=== PATIENT | female | born 1955 | race Caucasian/White ===

== ENCOUNTER 2023-04-07 18:26 | Inpatient (IN) | payer MEDICARE, SELFPAY ==
[2023-04-07] VITALS (7 sets, daily range): BP systolic 100–144; BP diastolic 60–87; BMI 26.2; BMI 25.5
[2023-04-07] MEDS: DECADRON 8 MG IV (16:24)
[2023-04-07] MEDS: VENTOLIN NEBULES 7.5 MG INH (16:27)
[2023-04-07] MEDS: DUONEB 3 ML INH ×2 (16:28→21:36)
[2023-04-07 16:38] LABS: % Basophils 0.3 % (0-2); % Eosinophils 4.8 % (0-6); % Immature Granulocytes 0.6 % (0-0.5); % Lymphocytes 24.8 % (20.5-51.1); % Neutrophils 62.5 % (42.2-75.2); Absolute Eosinophils 0.5 10^3/uL (0-0.7); Absolute Immature Granulocytes 0.1 10^3/uL (0-0.05); Absolute Lymphocytes 2.4 10^3/uL (1.2-3.4); Absolute Monocytes 0.7 10^3/uL (0.1-0.6); Hemoglobin 13.3 g/dL (12.0-16.0); Mean Corp Hgb Conc. 34.1 g/dL (33.0-37.0); Mean Corpuscular Hgb 29.9 pg (27.0-31.0); Mean Corpuscular Volume 87.6 fL (81.0-99.0); Mean Platelet Volume 9.3 fL (7.4-10.4); Nucleated Red Blood Cells % 0 %; Platelet Count 303 10^3/uL (130-400); Red Blood Cell Count 4.45 10^6/uL (4.20-5.40); White Blood Cell Count 9.6 10^3/uL (4.8-10.8)
[2023-04-07 16:52] LABS: D-Dimer < 0.27 ug/mlFEU (0.00-0.50)
[2023-04-07 16:55] LABS: Blood Urea Nitrogen 22 mg/dl (7-17); Calcium 10.6 mg/dl (8.4-10.2); Carbon Dioxide 28 mmol/L (22-30); Chloride 100 mmol/L (98-107); Estimated Creatinine Clearance 51 ml/min; Glucose 95 mg/dl (70-99); Potassium 4.4 mmol/L (3.5-5.1); Sodium 139 mmol/L (135-145); eGFR 54.73
[2023-04-07 16:56] LABS: COVID-19 Antigen Negative (Negative)
[2023-04-07 17:03] LABS: Troponin I < 0.012 ng/ml
--- NOTE | 2023-04-07 17:20 | ED.GENMED ---
History of Present Illness
General
Chief Complaint: Breathing Problem
Source: patient
Exam Limitations: none
Time Seen by Provider: 04/07/23 15:55
Travel History
Have you had any contact with someone who has COVID-19?: No
Do you have any symptoms of coronavirus? Fever > 100 degrees, chills, cough, shortness of breath, sore throat, loss of taste or smell, muscle aches, or headache?: No
History of Present Illness
History of Present Illness:
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 History of some mild shortness of breath but never to this degree. No pleuritic chest pain. No fever. No other infectious symptoms
Past History
Past History
ED Past Medical History: Hypercholesterolemia
ED Past Surgical History: Appendectomy and Cholecystectomy
Review of Systems
Review of Systems
All Other Systems: Not applicable
Constitutional: Denies fever
Cardiac: Reports no symptoms
ABD/GI: Reports no symptoms
Phy Exam
Physical Exam
Physical Exam:
GENERAL: Alert and oriented. Mildly tachypneic at rest. Mildly breathless with speaking
EYE: Orbits normal.
NECK: Supple, no significant adenopathy.
ENT: Pharynx without erythema
CARDIAC: Regular rate and rhythm without any obvious murmurs.
LUNGS: Mild tachypnea. Mildly breathless with speaking. Decreased breath sounds diffusely with end expiratory wheezing diffusely
ABDOMEN: Soft, without focal tenderness or distention
NEUROLOGICAL: Alert and oriented , grossly non-focal
SKIN: Warm and dry, no rash or lesion, no discoloration, skin intact.
MUSCULOSKELETAL: No edema,no deformity.Good color
PSYCH: Normal and appropriate interaction.
Scores
Heart Failure Risk
Heart Failure Risk Score: Not Applicable
Course
Orders/Labs/Results
Orders:
Orders
04/07/23 Breakfast
Cholesterol Lowering
At Your Request: Full Participation
Cholesterol Lowering: Sodium, 2 Gram
04/07/23 15:59
Electrocardiogram (*1) Stat
Reason for Study: Other
Other Reason for Exam: pneumonia
Cardiac Monitoring- Treatment ONCE
EKG- Treatment ONCE
IV Insert/Care/Rem.- Treatment PRN
Albuterol Sulfate [Ventolin Nebules] 7.5 mg INH R NOW STA
Dexamethasone Sod Phosphate [Decadron] 8 mg IV NOW STA
Ipratropium/Albuterol Sulfate [Duoneb] 3 ml INH R NOW STA
CXR Port [CR Chest Portable - 1 View] Urgent
Comment:
Reason For Exam: sob
Reason Study Needs to be Portable: Unable to Transport
Pulse Ox/cont/shift [RESP] Stat
Quantity: 1
04/07/23 16:20
Basic Metabolic Panel Urgent
COVID-19 Antigen Urgent
Source: Nasal Swab
Complete Blood Count/With Diff Urgent
D-Dimer Urgent
NT-proBNP Urgent
Troponin I Urgent
04/07/23 17:39
Admit/Transfer Patient As Directed
Co-Sign Provider:
Level of Care: Inpatient admission
Assign to:: Telemetry
Physician / Group: jazlyn carpio
Diagnosis: asthma exacerbation
Reason for Telemetry: Arrhythmia
Date to Stop Telemetry: 04/10/23
Time to Stop Telemetry: 11:00
Reason for Hospitalization: asthma exacerbation
Expected length of stay greater than two midnights?: Yes
ELOS- Estimated Length of Stay in days: 3
I certify the patient meets the requirements for IP care: Yes
04/07/23 17:40
Code Status As Directed
Resuscitation Status: Full Code
04/07/23 17:[address] Non Medication Order As Directed
Physician Order: notify MD when med rec done
Above order entered?: Yes
04/07/23 17:43
Peak Flow Rate [RESP] Routine
Quantity: 1
04/07/23 17:44
PULMONARY CONSULT Routine
Consulting Provider: Khris Newell
Was physician already notified: Yes
04/07/23 18:00
0.9% Sodium Chloride 1000 ml [Nss] 1,000 ml IV 80 mls/hr
04/07/23 19:54
Budesonide [Pulmicort] 0.5 mg INH R BID
Enoxaparin Sodium [Lovenox] 40 mg SC QPM
Ipratropium/Albuterol Sulfate [Duoneb] 3 ml INH R Q4HPRN PRN
04/07/23 19:54
Activity As Directed
Activity Level: As Tolerated
Intake/ Output As Directed
Frequency: Per unit guidelines
Vital Signs As Directed
Frequency: Per unit guidelines
Weight As Directed
Frequency: Daily
Pulse Ox/spot Check [RESP] Routine
Quantity: 1
DX Deep Vein Thrombosis Video Routine
04/07/23 20:00
Ipratropium/Albuterol Sulfate [Duoneb] 3 ml INH R QID
04/08/23 00:00
Dexamethasone Sod Phosphate [Decadron] 4 mg IV Q8H
04/08/23 07:04
Basic Metabolic Panel IN AM
Complete Blood Count/With Diff IN AM
04/10/23 11:00
DC Protocol for Telemetry ONCE
Abnormal Lab Results
04/07/23
16:20
RDW 15.0 H %
(11.5-14.5)
Abs Immat Gran (auto) 0.1 H 10^3/uL
(0-0.05)
Absolute Monos (auto) 0.7 H 10^3/uL
(0.1-0.6)
Immature Gran % 0.6 H %
(0-0.5)
BUN 22 H mg/dl
(7-17)
Creatinine 1.1 H mg/dL
(0.6-1.0)
Calcium 10.6 H mg/dl
(8.4-10.2)
04/07/23 16:20
04/07/23 16:20
Vital Signs
Initial and Last Documented VS:
Initial Vital Signs
Temp Pulse Resp BP Pulse Ox
97.7 F 106 22 144/87 96
04/07/23 14:44 04/07/23 14:44 04/07/23 14:44 04/07/23 14:44 04/07/23 14:44
Last Documented Vital Signs
Temp Pulse Resp BP Pulse Ox
98.3 F 107 18 139/92 97
04/08/23 11:00 04/08/23 11:00 04/08/23 11:00 04/08/23 11:00 04/08/23 11:00
*Radiology
Radiology exam reviewed: preliminary read by ED provider (Negative) and radiology read reviewed (Negative)
*EKG
Interpreted by ED Provider?: Yes
Interpretation: abnormal
Comparison EKG: no comparison EKG present
Heart Rate: 104
Rate: tachycardiac
Rhythm: sinus
[place]: normal axis
Interval: normal interval
QRS Pattern: normal QRS
Ischemia: no ischemia
*Turbinated Bone Grinder Interpretation
Rate: normal
Interpretation: normal
Heart Rate: 98
Rhythm: sinus
*Critical Care Note
Total Time (30-74mins, 75-104mins- exclusive of procedures): Not Applicable
Update Note
Update Note:
Patient improved but still diffuse expiratory wheezing and poor airflow. Warrants inpatient management
ED Attending Note
-
Portions of this chart may have been created with voice recognition software.� Occasional wrong word or��sound alike� substitutions may have occurred due to the inherent limitations of voice recognition software.
Discharge Plan
Departure
Patient Disposition: Admit
Date of Disposition: 04/07/23
Time of Disposition: 17:21
Presentation/result/management discussed w/ accepting MD/DO: Hospitalist
Discharge Problem:
Respiratory distress/COPD exacerbation
Interventions
Interventions:
*Risk Screen - Suicide Last Done: 04/07/23 14:44
*General Assessment Last Done: 04/07/23 14:44
*Neglect/Abuse Screening Last Done: 04/07/23 14:44
ED- Fall Risk Assessment Last Done: 04/07/23 17:00
*ED COVID-19 Vaccine History Last Done: 04/07/23 17:00
*Nursing Disposition Last Done: 04/07/23 19:51
ED- Cardiac Assessment Last Done: 04/07/23 17:00
ED- Pulmonary Assessment Last Done: 04/07/23 17:00
Discharge Date and Time
Discharge Date/Time: 04/07/23 19:52
--- NOTE | 2023-04-07 17:42 | HPS.HSE ---
Family Physician
-
Family Physician: Vinod Wilson Files
Chief Complaint
-
Shortness of breath
History of Present Illness
67-year-old female past medical history of hypertension, hyperlipidemia, asthma came to the hospital with shortness of breath. Per patient she was cleaning alexi room yesterday which triggered her symptoms. Denies any cough. Denies any
fever/chills. Denies any sick contacts. Denies any chest pain. Denies any abdominal pain, nausea, vomiting, diarrhea, constipation.
Medical History
Past Medical History
Past Medical History: Reports Asthma, HTN and Hypercholesterolemia
Past Surgical History: Reports Appendectomy and Cholecystectomy
Social History
Tobacco: Former Smoker
Drug: None
Family History
Family History: Not pertinent
Allergies / Home Medications
Allergies reflects when Allergies were last updated in [facility].
Home Medications with original date entered in [facility]
Allergy/Medication List:
Allergies
Allergy/AdvReac Type Severity Reaction Status Date / Time
peanut Allergy Severe Anaphylaxis Verified 04/07/23 14:44
Medications on admission are unable to be verified or confirmed at this time.
Lisinopril 20mg Daily
Albuterol 2puff Q6hPRN for sob or wheezing
Rosuvastatin
Review of Systems
-
History Source: Patient
A 12 point ROS was completed and negative except as noted: Yes
Respiratory: Reports Trouble Breathing
Physical Exam
Vital Signs
Vital Signs
Temp Pulse Resp BP Pulse Ox
97.7 F 106 15 100/66 97
04/07/23 14:44 04/07/23 17:15 04/07/23 17:15 04/07/23 17:00 04/07/23 17:15
Physical Exam
General: No Apparent Distress and Comfortable
HEENT: Anicteric and Moist mucous membranes
Respiratory: Clear, Wheezes and Non Labored Respirations
Cardiac: S1/S2, Regular Rhythm and Tachycardia
Breast: Deferred by me
GI: Soft, Non Tender, Non Distended and Normal Bowel Sounds
Rectal: Deferred by Provider
Genito-urinary: No Garcia
Musculoskeletal: No Edema
Neuro: Awake, Alert, Oriented and AO x 3
Psych: Calm and Intact Judgment/Insight
Laboratory Results
-
04/07/23 16:20
04/07/23 16:20
Laboratory Results
Troponin I < 0.012 ng/ml 04/07/23 16:20
Data Reviewed
-
Lab Data: Labs Reviewed by me and Discussed with Patient
Impression/Plan
-
Shortness of breath and wheezing suspect secondary to asthma exacerbation
Acute hypoxic respiratory insufficiency secondary above, currently on 2 L, wean oxygen as tolerated
Patient is not on any maintenance inhaler at home, will likely need to be discharged on ICS
Status post Decadron in the ED, continue Decadron, nebs. Pulmicort
Peak flow
Also has history of smoking so could have some COPD component. PFTs outpatient
Pulmonary evaluation
History of hypertension
Restart lisinopril when dose is confirmed
Suspect renal insufficiency
Monitor
Hypercalcemia
Fluids
monitor
Hyperlipidemia
DVTppx
lovenox
Full code
[2023-04-07] MEDS: NSS 1000 IV (18:39)
--- NOTE | 2023-04-07 20:40 | PTCARENOTE ---
Received pt from ED via stretcher. Pt ambulated to bed without assist. AAOx3, VSS, ST on tele monitor, no complaints of pain at this time. Oriented to floor, call frye within reach.
[2023-04-07] MEDS: LOVENOX 40 MG SC (20:45)
[2023-04-07] MEDS: OSCAL CAL 500 1000 MG PO (21:33)
[2023-04-07] MEDS: VITAMIN D3 (cholecalciferol) 25 MCG PO (21:33)
[2023-04-07] MEDS: CRESTOR 20 MG PO (21:33)
[2023-04-07] MEDS: PULMICORT 0.5 MG INH (21:36)
[2023-04-07] MEDS: PULMICORT INH (22:10)
[2023-04-08] MEDS: DECADRON 4 MG IV ×2 (00:28→08:48)
[2023-04-08 03:12] VITALS: BP 111/68
[2023-04-08 07:00] VITALS: BP 127/77
[2023-04-08 07:23] LABS: % Basophils 0.1 % (0-2); % Eosinophils 0.2 % (0-6); % Immature Granulocytes 0.5 % (0-0.5); % Lymphocytes 14.6 % (20.5-51.1); % Neutrophils 81.6 % (42.2-75.2); Absolute Immature Granulocytes 0.1 10^3/uL (0-0.05); Absolute Lymphocytes 1.6 10^3/uL (1.2-3.4); Absolute Monocytes 0.3 10^3/uL (0.1-0.6); Absolute Neutrophils 8.7 10^3/uL (1.4-6.5); Hematocrit 35.9 % (37.0-47.0); Mean Corp Hgb Conc. 33.4 g/dL (33.0-37.0); Mean Corpuscular Hgb 30.4 pg (27.0-31.0); Mean Corpuscular Volume 90.9 fL (81.0-99.0); Mean Platelet Volume 9.2 fL (7.4-10.4); Nucleated Red Blood Cells % 0 %; Platelet Count 261 10^3/uL (130-400); Red Blood Cell Count 3.95 10^6/uL (4.20-5.40); Red Cell Dist. Width 14.9 % (11.5-14.5); White Blood Cell Count 10.7 10^3/uL (4.8-10.8)
[2023-04-08] MEDS: PULMICORT 0.5 MG INH (07:24)
[2023-04-08] MEDS: DUONEB 3 ML INH (07:24)
[2023-04-08] MEDS: OSCAL CAL 500 1000 MG PO (08:48)
[2023-04-08] MEDS: VITAMIN D3 (cholecalciferol) 25 MCG PO (08:48)
[2023-04-08] MEDS: ZESTRIL 20 MG PO (08:49)
[2023-04-08 08:54] LABS: Blood Urea Nitrogen 25 mg/dl (7-17); Calcium 10.2 mg/dl (8.4-10.2); Carbon Dioxide 23 mmol/L (22-30); Chloride 101 mmol/L (98-107); Estimated Creatinine Clearance 56 ml/min; Glucose 155 mg/dl (70-99); Potassium 4.5 mmol/L (3.5-5.1); Sodium 137 mmol/L (135-145); eGFR > 60.00
--- NOTE | 2023-04-08 10:31 | CM ---
Cm met with pt bedside
Pt resides with her SO in a [place] with 3[place]
Pt is independent with her ADLs
Denies use of DMEs
PCP- Steve Gutierrez
Rx- [facility]
Discharge order noted
Pt weaned back to RA and notes independence throughout room
No dc needs noted
Discharge Disposition- home, no needs- SO transport
[2023-04-08 11:00] VITALS: BP 139/92
[2023-04-08] MEDS: DUONEB INH (11:33)
--- NOTE | 2023-04-08 11:33 | W.DCSUMMARY ---
Discharge Summary
Discharge Data
Date of Admission: 04/07/23
Date of Discharge: 04/08/23
Total time spent discharging patient (in min): 34
-
Pending Results: No
Hospital Course
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
with a apparent asthmatic flare with wheezing congestion no significant hypoxia was noted she did admit in her history that she lives with pets that and she is allergic to pet dander but has been taking course of antihistamines in the past but
stopped several months ago she has a rescue inhaler in the form of albuterol that she did not use on this occasion she was treated in the ED with nebulizer therapy and admitted to observation status she was given a course of IV steroids which
significantly improved her symptoms at the time of my evaluation this morning on seeing her she is not exhibiting any bronchospasm not requiring oxygen there is no respiratory distress we had a discussion over preventative measures to include return
to her antihistamine usage and I suggested something like Zyrtec or Claritin going forward I did suggest to her that she may benefit from a inhaled corticosteroid and I will give her a prescription for Symbicort as maintenance she will go home on a
3-day course of prednisone 40 mg each day and then stopped she can continue usage of albuterol as a rescue inhaler. I did advise her to seek attention with her PCP and/or have allergy testing to assess the full extent of her allergic based asthma
although of note entered CBC differential eosinophils on presentation were 4.8% on date of admission and down to 0.2% at time of discharge.
Discharge Plan
-
Patient Disposition: Home (Routine Discharge)
Discharge Diagnosis/Procedures: Acute asthmatic flare
Underlying COPD
Diet: No restrictions
Activity: No restrictions
Driving Restrictions: As prior to admission
Referrals:
Vinod Gutierrez DO [Family Provider] -
Prescriptions:
New
prednisone 20 mg tablet
40 mg PO DAILY Qty: 6 0RF
budesonide-formoterol [Symbicort] 160-4.5 mcg/actuation HFA aerosol inhaler
2 puff inhalation BID Qty: 10.2 0RF
Continued
albuterol sulfate 90 mcg/actuation Hfa Aerosol Inhaler
1 puff INHALATION R Q4HPRN PRN (Reason: sob)
omega-3 acid ethyl esters 1 gram Capsule
2 cap PO BID
Calcium + D3
1 tab PO BID
Patient Comments:
04/07/2023, 1200 mg Calcium, 25 mcg D3 per tablet.
lisinopril 20 mg Tablet
20 mg PO DAILY Qty: 0 0RF
rosuvastatin 20 mg Tablet
20 mg PO HS Qty: 0 0RF
Discharge Orders:
Discharge Patient (As Directed); Ordered 04/08/23
Ordered By: Librado Elias
--- NOTE | 2023-04-08 11:38 | W.DS.TRANS ---
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
-
Discharge Instructions:
Discharge Diagnosis/Procedures Acute asthmatic flare
Underlying COPD
Diet No restrictions
Activity No restrictions
Driving Restrictions As prior to admission
Instructions:
Stand-Alone Forms:
Changes to Home Medications: No
Discharge Medications:
DC Medications w/original date entered in [facility]
Calcium + D3 1 tab PO BID 04/07/23
albuterol sulfate 90 mcg/actuation aerosol inhaler 1 puff inhalation R Q4HPRN PRN sob 04/07/23
omega-3 acid ethyl esters 1 gram capsule 2 cap PO BID 04/07/23
budesonide-formoterol HFA 160 mcg-4.5 mcg/actuation aerosol inhaler (Symbicort) 2 puff inhalation BID Anti-inflammatory #10.2 grams 04/08/23
lisinopril 20 mg tablet 20 mg PO DAILY Blood pressure #0 tabs 04/08/23
prednisone 20 mg tablet 40 mg PO DAILY Anti-inflammatory #6 tabs 04/08/23
rosuvastatin 20 mg tablet 20 mg PO HS Supplement #0 tabs 04/08/23
Home Medication Changes
prednisone 20 mg tablet 40 mg PO DAILY Anti-inflammatory #6 tabs 04/08/23
budesonide-formoterol HFA 160 mcg-4.5 mcg/actuation aerosol inhaler (Symbicort) 2 puff inhalation BID Anti-inflammatory #10.2 grams 04/08/23
Pending Results: No
Total time spent discharging patient (in min): 34
== END 2023-04-08 13:14 | disposition home or self-care (01) | DRG 192 ==
LOC: 4 EAST ACU 18:26
PROVIDERS: ADMITTING PHYSICIAN Internal Medicine; ATTENDING PHYSICIAN Internal Medicine; EMERGENCY PHYSICIAN Emergency Medicine; FAMILY PHYSICIAN Family Medicine
DX: J44.1 Chronic obstructive pulmonary disease with (acute) exacerbation (principal); I10 Essential (primary) hypertension; E78.00 Pure hypercholesterolemia, unspecified; Z79.51 Long term (current) use of inhaled steroids
CPT/HCPCS: 71045; 80048; 83880; 84484; 85025; 85379; 87811; 93005; 94640; 96374; 99285

== ENCOUNTER 2023-11-15 21:33 | Inpatient (IN) | payer MEDICARE, OTHER, SELFPAY ==
[2023-11-15 15:34] VITALS: BP 159/87
[2023-11-15 16:13] LABS: ALT (SGPT) 37 U/L (0-35); AST (SGOT) 21 U/L (14-36); Albumin 4.2 g/dl (3.5-5.0); Alkaline Phosphatase 80 U/L (38-126); Blood Urea Nitrogen 35 mg/dl (7-17); Calcium 10.2 mg/dl (8.4-10.2); Carbon Dioxide 26 mmol/L (22-30); Chloride 99 mmol/L (98-107); Glucose 94 mg/dl (70-99); Potassium 3.9 mmol/L (3.5-5.1); Sodium 142 mmol/L (135-145); Total Bilirubin 0.5 mg/dl (0.2-1.3); Total Protein 7.1 g/dl (6.3-8.2); eGFR 40.73
--- NOTE | 2023-11-15 16:23 | ED.GENMED ---
History of Present Illness
General
Chief Complaint: Breathing Problem
Time Seen by Provider: 11/15/23 16:12
History of Present Illness
History of Present Illness:
Patient presents to the emergency department with shortness of breath. Notes that she got a head cold 2 weeks ago on a cruise. Since then she has had worsening cough and dyspnea. She was started on a Medrol dose pack, Levaquin and inhaler by her
primary doctor 4 days ago. Despite this she notes worsening symptoms. Endorses cough productive of mucus. Denies fevers or chills. Endorses dyspnea. Denies chest pain or leg swelling.
Past History
Past History
ED Past Medical History: Hypercholesterolemia
ED Past Surgical History: Appendectomy and Cholecystectomy
Phy Exam
Physical Exam
Physical Exam:
GENERAL APPEARANCE: NAD, well developed/ well nourished
EYES lids/conjunctiva normal
EARS/NOSE/THROAT Mucous membranes moist, uvula midline without oral pharyngeal erythema, exudate or swelling
HEAD/NECK normocephalic atraumatic, neck is supple.
RESPIRATORY mild increase in respiratory effort, wheezing in anterior lung spaulding. Diminished air movement throughout.
CARDIAC Regular rate and rhythm, no edema.
ABDOMINAL Soft, ND/NT. No pulsatile masses on exam, rebound tenderness, Villalobos sign or pain over Mcburney's point.
MUSCLES/EXTREMITIES No abnormal range of motion, no swelling.
SKIN Warm, pink and dry. No rashes
NEUROLOGICAL Speech is clear and appropriate. Normal level of consciousness. 5/5 strength in all extremities.
PSYCH Normal mood and affect. Judgement/competence is appropriate
Scores
Heart Failure Risk
Heart Failure Risk Score: Not Applicable
Course
Orders/Labs/Results
Orders:
Orders
11/15/23 15:40
Complete Blood Count/With Diff Urgent
Comprehensive Metabolic Panel Urgent
11/15/23 16:19
0.9% Sodium Chloride 500 ml [Nss] 500 ml IV BOLUS
Ipratropium/Albuterol Sulfate [Duoneb] 3 ml INH R NOW STA
MethylPREDNISolone PF [Solu-Medrol Pf] 125 mg IV NOW STA
Pulse Ox/cont/shift [RESP] Stat
Quantity: 1
11/15/23 16:21
CR Chest - 2 Views Urgent
Comment:
Reason For Exam: sob
11/15/23 16:39
D-Dimer Urgent
Troponin I Urgent
11/15/23 17:14
CT Chest Pe Study Urgent
Comment:
Reason For Exam: sob, +ddimer
11/15/23 17:53
COVID-19 Antigen Urgent
Source: Nasal Swab
Influenza A+B Rapid Molecular Urgent
CHELSY Source: Nasal Swab
Specimen Description:
11/15/23 19:00
Azithromycin [Zithromax] 500 mg PO NOW STA
CefTRIAXone [Rocephin] 1,000 mg IV NOW STA
Abnormal Lab Results
11/15/23 11/15/23
15:40 16:39
WBC 19.0 H 10^3/uL
(4.8-10.8)
RDW 16.5 H %
(11.5-14.5)
Abs Immat Gran (auto) 2.0 H 10^3/uL
(0-0.05)
Absolute Neuts (auto) 11.8 H 10^3/uL
(1.4-6.5)
Absolute Monos (auto) 2.1 H 10^3/uL
(0.1-0.6)
Immature Gran % 10.4 H %
(0-0.5)
Lymphocytes % 15.9 L %
(20.5-51.1)
Monocytes % 10.8 H %
(1.7-9.3)
D-Dimer 1.33 H ug/mlFEU
(0.00-0.50)
BUN 35 H mg/dl
(7-17)
Creatinine 1.4 H mg/dL
(0.6-1.0)
ALT 37 H U/L
(0-35)
11/15/23 15:40
11/15/23 15:40
Vital Signs
Initial and Last Documented VS:
Initial Vital Signs
Temp Pulse Resp BP Pulse Ox
98.3 F 123 20 159/87 92
11/15/23 15:34 11/15/23 15:34 11/15/23 15:34 11/15/23 15:34 11/15/23 15:34
Last Documented Vital Signs
Temp Pulse Resp BP Pulse Ox
98.3 F 95 15 96/81 89
11/15/23 15:34 11/15/23 18:30 11/15/23 18:30 11/15/23 18:00 11/15/23 18:15
*Critical Care Note
Total Time (30-74mins, 75-104mins- exclusive of procedures): Not Applicable
ED Attending Note
ED Attending Note
ED Attending Note:
hx of chronic bronchitis/asthma, ex smoker
here with worsening cough over past 2 weeks despite medrol dose pack, levaquin as outpatient
hypoxic here requiring 2L NC
Afebrile, WBC 19
given lack of fever, hypotension/shock, in the setting of blood culture shortage, no cultures drawn
CTA negative for PE, she has LLL pneumonia
treated with CTX and azithro
also got a dose of solumedrol and duoneb on arrival for wheezing
-
Portions of this chart may have been created with voice recognition software.� Occasional wrong word or��sound alike� substitutions may have occurred due to the inherent limitations of voice recognition software.
Discharge Plan
Departure
Patient Disposition: Admit
Date of Disposition: 11/15/23
Time of Disposition: 19:32
Admit to: Telemetry
Presentation/result/management discussed w/ accepting MD/DO: Hospitalist
Discharge Problem:
Community acquired pneumonia
Prescriptions:
No Action
albuterol sulfate 90 mcg/actuation Hfa Aerosol Inhaler
1 puff INHALATION R Q4HPRN PRN (Reason: sob)
omega-3 acid ethyl esters 1 gram Capsule
2 cap PO BID
calcium carbonate-vitamin D3 [Calcium 600 + D(3)] 600 mg-10 mcg (400 unit) Tablet
1 tab PO BID Qty: 0
Patient Comments:
04/07/2023, 1200 mg Calcium, 25 mcg D3 per tablet.
methylprednisolone 4 mg tablet
4 mg PO PER PKG DIR
zinc sulfate 50 mg zinc (220 mg) Tablet
50 mg PO DAILY
ascorbic acid (vitamin C) [Vitamin C] 500 mg Tablet
500 mg PO DAILY
losartan 25 mg tablet
25 mg PO DAILY
levofloxacin 750 mg tablet
750 mg PO HS
Saline Nasal Mist 0.65 % Aerosol,[place]
2 spray INTRANASAL BIDPRN PRN (Reason: congestion)
guaifenesin [Mucinex] 1,200 mg Tablet Extended Release 12hr
1,200 mg PO BIDPRN PRN (Reason: congestion)
Trelegy Ellipta 100-62.5-25 mcg Blister With Device
1 inh INHALATION R HS
rosuvastatin 20 mg tablet
20 mg PO HS
Referrals:
Vinod Gutierrez DO [Family Provider] -
Interventions
Interventions:
*Risk Screen - Suicide Last Done: 11/15/23 17:43
*General Assessment Last Done: 11/15/23 17:43
*Neglect/Abuse Screening Last Done: 11/15/23 17:43
*ED COVID-19 Vaccine History Last Done: 11/15/23 17:43
ED- Cardiac Assessment Last Done: 11/15/23 16:41
ED- Pulmonary Assessment Last Done: 11/15/23 16:41
Discharge Date and Time
Print Language: [id number]
[2023-11-15] MEDS: DUONEB 3 ML INH (16:41)
[2023-11-15] MEDS: SOLU-MEDROL PF 125 MG IV (16:41)
[2023-11-15] MEDS: NSS 500 IV (16:41)
[2023-11-15 16:47] LABS: Hematocrit 37.2 % (37.0-47.0); Hemoglobin 12.3 g/dL (12.0-16.0); Mean Corp Hgb Conc. 33.1 g/dL (33.0-37.0); Mean Corpuscular Volume 87.7 fL (81.0-99.0); Mean Platelet Volume 8.5 fL (7.4-10.4); Platelet Count 397 10^3/uL (130-400); Red Blood Cell Count 4.24 10^6/uL (4.20-5.40); Red Cell Dist. Width 16.5 % (11.5-14.5)
[2023-11-15 16:58] LABS: D-Dimer 1.33 ug/mlFEU (0.00-0.50)
[2023-11-15 17:16] LABS: Troponin I < 0.012 ng/ml
[2023-11-15 17:51] VITALS: BP 99/86
[2023-11-15 18:00] VITALS: BP 96/81
[2023-11-15 19:01] LABS: COVID-19 Antigen Negative (Negative)
[2023-11-15] MEDS: ZITHROMAX 500 MG PO (19:24)
[2023-11-15 19:25] LABS: % Basophils 0.1 % (0-2); % Eosinophils 0.5 % (0-6); % Immature Granulocytes 10.4 % (0-0.5); % Lymphocytes 15.9 % (20.5-51.1); % Monocytes 10.8 % (1.7-9.3); % Neutrophils 62.3 % (42.2-75.2); Absolute Eosinophils 0.1 10^3/uL (0-0.7); Absolute Monocytes 2.1 10^3/uL (0.1-0.6); Absolute Neutrophils 11.8 10^3/uL (1.4-6.5); Nucleated Red Blood Cells % 0.2 %
[2023-11-15] MEDS: ROCEPHIN 1000 MG IV (19:25)
--- NOTE | 2023-11-15 20:51 | HPS.HSE ---
Addendum entered and electronically signed by July Kelley, 11/15/23 22:44:
The patient is seen and examined. I have reviewed the patient with Juany, and agree with her history and physical, assessment and plan of care, as per below.
She is not on home oxygen, and is currently requiring 3 L O2 per NC in the ED.
HR 103, RR 22
WBC 19.0
CT chest
Findings suggesting probable moderate left lower lobe pneumonia. Repeat exam in 2 weeks following treatment is recommended to exclude underlying masses.
no PE
CAP, failed oral OP medications, systemic inflammatory response, and new O2 requirements
-continue IV antibiotics, nebs, steroids (Prednisone 20 mg daily -was on OP medrol dose back at 12 mg x 1 day, 8 mg x 1 day, 4 mg then stop), O2 per RT weaning protocol
MARTIN
IVF, hold Losartan, repeat labs in am
Original Note:
Family Physician
-
Family Physician: Vinod Wilson Files
Chief Complaint
-
Cough, wheezing, chills
History of Present Illness
68-year-old female who reports going on a cruise from October 27 to the where she developed a slight sore throat with mild chills and fatigue. Her was at bedside also had the same symptoms. They did not test for COVID or flu as a
state people do not do that anymore'. She reports she then developed a persistent cough productive in color white to clear then dark yellow over the past few days along with headache and chills. She states she was placed on a Medrol pack 3 days
ago along with Levaquin 750 mg daily and Trelegy Ellipta switched from her budesonide/formoterol. She denies blurred vision, current sore throat, chest pain, palpitations, abdominal pain, nausea, vomiting, diarrhea, urinary symptoms. She has past
medical history of former smoker 41 years three-quarter pack a day quit age 58, quit drinking 3 beers daily past few weeks, emphysema, HTN, HLD.
Medical History
Past Medical History
Past Medical History: Reports Other
Additional Past Medical History:
former smoker 41 years three-quarter pack a day quit age 58
emphysema
Former alcohol abuse, quit drinking 3 beers daily past few weeks
HTN
HLD
Past Surgical History: Reports Other
Additional Past Surgical History:
Appendectomy age 8
Cholecystectomy
Social History
Tobacco: Former Smoker (41-year 3/4 PPD, quit age 58)
Alcohol: Former (Drink 3 beers daily quit a few weeks ago)
Drug: None
Personal:
Living: With Family
Employment: Retired
Family History
Family History: Other (Mother breast CA Father lung CA)
Allergies / Home Medications
Allergies reflects when Allergies were last updated in [facility].
Home Medications with original date entered in [facility]
Allergy/Medication List:
Allergies
Allergy/AdvReac Type Severity Reaction Status Date / Time
peanut Allergy Severe Anaphylaxis Verified 04/07/23 14:44
Home Medications
albuterol sulfate 90 mcg/actuation aerosol inhaler 1 puff inhalation R Q4HPRN PRN sob 04/07/23
calcium 600 mg (as carbonate)-vitamin D3 10 mcg (400 unit) tablet (Calcium 600 + D(3)) 1 tab PO BID Supplement ##0 04/07/23
omega-3 acid ethyl esters 1 gram capsule 2 cap PO BID Supplement 04/07/23
ascorbic acid (vitamin C) 500 mg tablet (Vitamin C) 500 mg PO DAILY Supplement 11/15/23
fluticasone fur. 100 mcg-umeclid 62.5 mcg-vilant 25 mcg inhalat.powder (Trelegy Ellipta) 1 inh inhalation R HS Lung/Breathing Issues 11/15/23
guaifenesin 1,200 mg tablet, extended release 12 hr (Mucinex) 1,200 mg PO BIDPRN PRN congestion 11/15/23
levofloxacin 750 mg tablet 750 mg PO HS Infection 11/15/23
losartan 25 mg tablet 25 mg PO DAILY Blood Pressure 11/15/23
methylprednisolone 4 mg tablet 4 mg PO PER PKG DIR Anti-Inflammatory 11/15/23
rosuvastatin 20 mg tablet 20 mg PO HS High Cholesterol 11/15/23
sodium chloride 0.65 % nasal spray aerosol (Saline Nasal Mist) 2 spray intranasal BIDPRN PRN congestion 11/15/23
zinc sulfate 50 mg zinc (220 mg) tablet 50 mg PO DAILY Supplement 11/15/23
Review of Systems
-
History Source: Patient and Family ( at bedside)
A 12 point ROS was completed and negative except as noted: Yes
Constitutional: Reports Chills; Denies Fever
EENT: Reports Sore Throat; Denies Runny Nose
Respiratory: Reports Cough (Productive dark yellow) and Trouble Breathing (Wheezing)
Cardiac: Denies Chest Pain, Diaphoresis, Palpitations or Syncope
Abdomen/GI: Denies Abdominal Pain, Nausea, Vomiting, Diarrhea, Constipated, Bloody Stools or Black Stools
: Denies Dysuria, Frequency, Flank Pain, Incontinence, Difficulty Voiding, Urgency, Bleeding or Dark Urine
Musculoskeletal: Denies Joint Pain, Joint Swelling or Edema
Skin: Denies Itching or Rash
Neurological: Denies Dizzy, Headache or Weakness
Endocrine: Reports No Symptoms
Hematologic/Lymphatic: Reports No Symptoms
Psych: Reports Calm
Physical Exam
Vital Signs
Vital Signs
Temp Pulse Resp BP Pulse Ox
98.3 F 105 17 96/81 96
11/15/23 15:34 11/15/23 20:45 11/15/23 20:45 11/15/23 18:00 11/15/23 20:45
Physical Exam
General: Comfortable, Conversant and Chills; No Pain or Fever
HEENT: NormoCephalic, Anicteric, Moist mucous membranes, PERRLA, [place] Conjunctivae, No Ptosis and Oxygen (2 L nasal cannula)
Respiratory: Clear; No Wheezes, Rales or Rhonchi
Cardiac: S1/S2 and Tachycardia; No Murmur, Rub, Gallop, Peripheral Edema or JVD
Breast: Deferred by me
GI: Soft, Non Tender, Non Distended, Normal Bowel Sounds and No Hepatosplenomegaly
Rectal: Deferred by Provider
Genito-urinary: Deferred by me
Musculoskeletal: No Clubbing, No Cyanosis and No Edema
Skin: Warm and Dry; No Rash or Jaundice
Neuro: AO x 3, No Motor Deficits, Nonfocal/grossly intact, Cranial Nerves Intact and No Sensory Deficits; No Slurred Speech, Facial Droop, Tremors or Sedated
Psych: Calm
Laboratory Results
-
11/15/23 15:40
11/15/23 15:40
Laboratory Results
Total Bilirubin 0.5 mg/dl (0.2-1.3) 11/15/23 15:40
AST 21 U/L (14-36) 11/15/23 15:40
ALT 37 U/L (0-35) H 11/15/23 15:40
Alkaline Phosphatase 80 U/L (38-126) 11/15/23 15:40
Troponin I < 0.012 ng/ml 11/15/23 16:39
Data Reviewed
-
Diagnostic Radiology: Report Reviewed by me
CT Scan: Report Reviewed by me
Lab Data: Labs Reviewed by me
Impression/Plan
-
Impression/plan:
Admit to telemetry
#Acute hypoxic resp insuff /SEPSIS 2/2 LEFT LOWER LOBE PNA
#Acute on chronic bronchitis
89% RA, 96% 2 LNC
COVID / FLU negative
WBC 19 no shift, afebrile, recent Medrol pack took first 3 doses, 96/81, HR 105
-Check sputum culture
-Blood culture
-IV Rocephin, IV Zithromax
-DuoNebs scheduled and as needed
-Continue Trelegy Ellipta(patient reports prefers her budesonide/formoterol)
-Continue guaifenesin 600 mg twice daily as needed cough
prednisone 20mg x5 days
-Follow CBC, BMP
-PT/OT/case management consult
CT PE study:
1. No evidence of PE
2. Probable moderate left lower lobe pneumonia, cannot rule out underlying masses recommend repeat CT chest in 2 weeks per radiology
3. Moderate emphysematous disease
#Moderate emphysematous disease per CT
#Former smoker 41-year 3/4 pack per day quit age 58
-Patient does not follow with any pulmonary recommended outpatient follow-up
#Hypotension likely secondary to volume depletion vs sepsis /HTN�benign
BP 96/81
-Hold losartan 25 mg daily
-IV NSS
#MARTIN likely secondary volume depletion
Creat 1.4 baseline appears 1 in March 2023
-IV NSS
-Follow BMP
-HOLD Losartan
#Former alcohol abuse
Reports drinks 3 beers daily until 3 weeks ago
#HLD
-Continue rosuvastatin 20 mg at bedtime, omega-3
DVT prophylaxis
Subcu Lovenox
DNR per patient
[2023-11-15 21:10] VITALS: BP 100/65
[2023-11-15 22:00] VITALS: BP 130/85; BMI 27.0
[2023-11-15] MEDS: NSS 1000 IV (23:23)
[2023-11-15] MEDS: CRESTOR 20 MG PO (23:24)
[2023-11-15 23:38] VITALS: BP 127/80
--- NOTE | 2023-11-15 23:56 | TRANSFER ---
Pt admitted to the unit from ED on 2L NC. Pt ambulated on 2L NC with nursing staff to bed. Pt reports SOB 'walking to bed.' Pt reports SOB resolved once 'in bed.' Pt denies difficulty breathing, lightheadedness, and dizziness. Pt oriented to room
with call frye in reach. Plan of care ongoing.
[2023-11-16] VITALS (7 sets, daily range): BP systolic 110–154; BP diastolic 76–88; PULSE 82–94; O2SAT 94–95
[2023-11-16] MEDS: DUONEB 3 ML INH (03:57)
[2023-11-16 07:18] LABS: Hematocrit 33.3 % (37.0-47.0); Hemoglobin 11.2 g/dL (12.0-16.0); Mean Corp Hgb Conc. 33.6 g/dL (33.0-37.0); Mean Corpuscular Hgb 30.3 pg (27.0-31.0); Mean Platelet Volume 8.7 fL (7.4-10.4); Platelet Count 391 10^3/uL (130-400); Red Cell Dist. Width 16.5 % (11.5-14.5); White Blood Cell Count 19.5 10^3/uL (4.8-10.8)
[2023-11-16] MEDS: SPIRIVA RESPIMAT 2.5 MCG INH (07:32)
[2023-11-16] MEDS: SYMBICORT 80/4.5 MCG INHALER 2 PUFF INH ×2 (07:33→19:51)
[2023-11-16 07:52] LABS: ALT (SGPT) 29 U/L (0-35); AST (SGOT) 17 U/L (14-36); Albumin 3.7 g/dl (3.5-5.0); Alkaline Phosphatase 74 U/L (38-126); Blood Urea Nitrogen 32 mg/dl (7-17); Calcium 9.1 mg/dl (8.4-10.2); Carbon Dioxide 24 mmol/L (22-30); Chloride 102 mmol/L (98-107); Estimated Creatinine Clearance 46 ml/min; Glucose 137 mg/dl (70-99); Potassium 4.4 mmol/L (3.5-5.1); Sodium 141 mmol/L (135-145); Total Bilirubin 0.4 mg/dl (0.2-1.3); Total Protein 6.2 g/dl (6.3-8.2)
[2023-11-16 08:21] LABS: Absolute Neutrophils -Man Diff 9.5 10^3/uL (1.4-6.5); Anisocytosis 1+; Atypical Lymphocytes 2 %; Band Neutrophils 2 % (0-3); Eosinophils 1 % (0-6); Lymphocytes 11 % (20-51); Metamyelocytes 3 % (-); Monocytes 5 % (2-9); Myelocytes 2 % (-); Normal RBC Morphology No; Platelets Checked Yes; Segmented Neutrophils 47 % (42-75)
[2023-11-16 08:22] LABS: Hypochromasia 1+; Ovalocytes 1+; Polychromasia 1+
[2023-11-16 08:23] LABS: Total Cells Counted 100
[2023-11-16] MEDS: OSCAL 500 + D 500 MG PO ×2 (08:33→19:42)
[2023-11-16] MEDS: DELTASONE 20 MG PO (08:33)
--- NOTE | 2023-11-16 09:27 | W.PN.HOSP.TC ---
Today's Communication/Plan
-
IV antibiotics. Oral steroids.
Assessment / Plan
Assessment / Plan
Physical exam:
General: Acutely ill
HEENT: Normocephalic, Atraumatic and Moist Mucous Membranes
Respiratory: Coarse rhonchi bilateral; prolonged expiratory phase; Negative Wheezes, Rales
Cardiac: Regular Rhythm and S1/S2
GI: Soft, Nontender and Nondistended
Musculoskeletal: No Clubbing, No Cyanosis and No Edema
Neuro: Awake, Alert and Oriented
Psych: Calm
A/P:
Acute hypoxic respiratory insufficiency:
Continue supplemental oxygen to keep pulse ox around 92% or above
CTA negative for PE
Monitor respiratory status closely
PT OT eval
Home oxygen eval prior to discharge
Sepsis due to pneumonia:
Continue IV antibiotics, Rocephin and Zithromax
CT confirms left lower lobe pneumonia
Follow-up cultures
COPD with acute exacerbation:
Continue oral steroids and will taper accordingly
It seems she got some IV Solu-Medrol yesterday in the ED
CT with evidence evidence of emphysematous changes.
Continue bronchodilators scheduled
Leukocytosis:
Likely steroids related and a component of infection as well
Continue to trend
MARTIN:
Continue IV fluids but decrease rate
Creatinine 1.4--> 1.2 today
Anemia:
Dilutional component
Continue to monitor hemoglobin
Hyperlipidemia:
Continue home statin
#Former alcohol abuse
Reports drinks 3 beers daily until 3 weeks ago
DVT prophylaxis:
Lovenox
CODE STATUS:
DNR
Time spent 55 minutes
Anticipated Discharge: > 48 hours
Subjective/Interval History
-
Date of Service: November 16, 2023
Patient still having cough and shortness of breath but overall feels better. Afebrile
Objective Data
-
Labs:
Laboratory Results
11/16/23
05:52
WBC 19.5 H
Hgb 11.2 L
Hct 33.3 L
Plt Count 391
Sodium 141
Potassium 4.4
Chloride 102
Carbon Dioxide 24
BUN 32 H
Creatinine 1.2 H
Glucose 137 H
Calcium 9.1
Total Bilirubin 0.4
AST 17
ALT 29
Alkaline Phosphatase 74
Vital Signs:
Vital Signs
Temp Pulse Resp BP Pulse Ox
97.8 F 82 18 145/83 95
11/16/23 07:05 11/16/23 07:36 11/16/23 07:36 11/16/23 07:05 11/16/23 07:36
I&O
11/15/23 11/16/23 11/17/23
06:59 06:59 06:59
Intake Total 480 / 480 730 / 730
Balance 480 / 480 730 / 730
[2023-11-16] MEDS: NSS 1000 IV (10:37)
[2023-11-16] MEDS: VENTOLIN NEBULES 2.5 MG INH ×4 (11:47→23:14)
--- NOTE | 2023-11-16 15:41 | CM ---
CM met with pt bedside, SO/Sean also bedside
They reside together in a 2SH with 2STE
1st floor set up
Independent with her ADLs, no DMEs, drives+
No home O2 at baseline No financial insecurities
PCP- Charisse Files
rx- [facility]
Discharge Disposition-home, watch home O2
[2023-11-16] MEDS: LOVENOX 40 MG SC (18:23)
[2023-11-16] MEDS: ROCEPHIN 1000 MG IV (19:42)
[2023-11-16] MEDS: STERILE WATER FOR INJECTION 10 ML IV (19:42)
[2023-11-16] MEDS: ZITHROMAX INFUSION 250 IV (19:52)
[2023-11-16] MEDS: CRESTOR 20 MG PO (22:21)
[2023-11-17] MEDS: NSS 1000 IV (01:53)
[2023-11-17 03:14] VITALS: BP 123/70
[2023-11-17 07:02] VITALS: BP 117/63
[2023-11-17 07:48] LABS: Hematocrit 29.5 % (37.0-47.0); Hemoglobin 9.8 g/dL (12.0-16.0); Mean Corp Hgb Conc. 33.2 g/dL (33.0-37.0); Mean Corpuscular Hgb 29.1 pg (27.0-31.0); Mean Corpuscular Volume 87.5 fL (81.0-99.0); Mean Platelet Volume 8.8 fL (7.4-10.4); Platelet Count 377 10^3/uL (130-400); Red Blood Cell Count 3.37 10^6/uL (4.20-5.40); Red Cell Dist. Width 16.6 % (11.5-14.5); White Blood Cell Count 15.2 10^3/uL (4.8-10.8)
[2023-11-17 07:54] LABS: ALT (SGPT) 23 U/L (0-35); AST (SGOT) 18 U/L (14-36); Alkaline Phosphatase 41 U/L (38-126); Blood Urea Nitrogen 25 mg/dl (7-17); Calcium 8.6 mg/dl (8.4-10.2); Carbon Dioxide 24 mmol/L (22-30); Chloride 106 mmol/L (98-107); Estimated Creatinine Clearance 55 ml/min; Glucose 88 mg/dl (70-99); Potassium 4.4 mmol/L (3.5-5.1); Sodium 141 mmol/L (135-145); Total Bilirubin 0.3 mg/dl (0.2-1.3); Total Protein 5.4 g/dl (6.3-8.2); eGFR > 60.00
[2023-11-17] MEDS: SYMBICORT 80/4.5 MCG INHALER 2 PUFF INH ×2 (07:54→19:54)
[2023-11-17] MEDS: SPIRIVA RESPIMAT 2.5 MCG 2 PUFF INH (07:54)
[2023-11-17] MEDS: VENTOLIN NEBULES 2.5 MG INH ×4 (07:54→19:54)
[2023-11-17 08:25] LABS: % Basophils 0.7 % (0-2); % Eosinophils 0.7 % (0-6); % Immature Granulocytes 7.5 % (0-0.5); % Lymphocytes 18.8 % (20.5-51.1); % Monocytes 6.4 % (1.7-9.3); % Neutrophils 65.9 % (42.2-75.2); Absolute Basophils 0.1 10^3/uL (0-0.2); Absolute Eosinophils 0.1 10^3/uL (0-0.7); Absolute Immature Granulocytes 1.1 10^3/uL (0-0.05); Absolute Lymphocytes 2.9 10^3/uL (1.2-3.4); Absolute Neutrophils 10.1 10^3/uL (1.4-6.5); Nucleated Red Blood Cells % 0 %
[2023-11-17] MEDS: DELTASONE 20 MG PO (08:52)
[2023-11-17] MEDS: OSCAL 500 + D PO (08:52)
[2023-11-17] MEDS: ROBITUSSIN 100 MG PO ×4 (08:52→22:43)
--- NOTE | 2023-11-17 08:55 | W.PN.HOSP.TC ---
Today's Communication/Plan
-
IV antibiotics. Oral steroids.
Assessment / Plan
Assessment / Plan
Physical exam:
General: Acutely ill
HEENT: Normocephalic, Atraumatic and Moist Mucous Membranes
Respiratory: Coarse rhonchi bilateral; prolonged expiratory phase; Negative Wheezes, Rales
Cardiac: Regular Rhythm and S1/S2
GI: Soft, Nontender and Nondistended
Musculoskeletal: No Clubbing, No Cyanosis and No Edema
Neuro: Awake, Alert and Oriented
Psych: Calm
A/P:
Acute hypoxic respiratory insufficiency:
Continue supplemental oxygen to keep pulse ox around 92% or above
CTA negative for PE
Monitor respiratory status closely
PT OT eval
Home oxygen eval prior to discharge
Sepsis due to pneumonia:
Continue IV antibiotics, Rocephin and Zithromax
Did EKG and QTc acceptable
CT confirms left lower lobe pneumonia
WBC trending down despite being on steroids. WBC 19-->15
Legionella negative, respiratory cultures negative, influenza negative.
Follow-up cultures
COPD with acute exacerbation:
Continue oral steroids and will taper accordingly
It seems she got some IV Solu-Medrol in the ED
CT with evidence evidence of emphysematous changes.
Continue bronchodilators scheduled
Leukocytosis:
Likely steroids related and a component of infection as well
Continue to trend
MARTIN:
Creatinine 1.4--> 1.0 today
Stop IV fluids today
Anemia:
Drifted down
Dilutional component but continue to monitor hemoglobin closely
No signs of active bleeding
Hyperlipidemia:
Continue home statin
#Former alcohol abuse
Reports drinks 3 beers daily until 3 weeks ago
DVT prophylaxis:
Lovenox
CODE STATUS:
DNR
Anticipated Discharge: 24 - 48 hours
Subjective/Interval History
-
Date of Service: November 17, 2023
Patient has nasal congestion today and postnasal drip. Overall feels better. Afebrile.
Objective Data
-
Labs:
Laboratory Results
11/17/23
05:44
WBC 15.2 H
Hgb 9.8 L
Hct 29.5 L
Plt Count 377
Sodium 141
Potassium 4.4
Chloride 106
Carbon Dioxide 24
BUN 25 H
Creatinine 1.0
Glucose 88
Calcium 8.6
Total Bilirubin 0.3
AST 18
ALT 23
Alkaline Phosphatase 41
Vital Signs:
Vital Signs
Temp Pulse Resp BP Pulse Ox
97.7 F 81 14 117/63 96
11/17/23 07:02 11/17/23 07:56 11/17/23 07:56 11/17/23 07:02 11/17/23 07:56
I&O
11/16/23 11/17/23 11/18/23
06:59 06:59 06:59
Intake Total 480 / 480 1670 / 1670
Balance 480 / 480 1670 / 1670
[2023-11-17 11:14] VITALS: BP 125/76
[2023-11-17] MEDS: ZYRTEC 5 MG PO (13:39)
[2023-11-17 15:10] VITALS: BP 129/73
[2023-11-17] MEDS: LOVENOX 40 MG SC (18:05)
[2023-11-17 19:15] VITALS: BP 119/64
[2023-11-17] MEDS: ZITHROMAX INFUSION 250 IV (19:47)
[2023-11-17] MEDS: NSS IV (19:47)
[2023-11-17] MEDS: OSCAL 500 + D 500 MG PO (19:47)
[2023-11-17] MEDS: STERILE WATER FOR INJECTION 10 ML IV (19:48)
[2023-11-17] MEDS: ROCEPHIN 1000 MG IV (19:48)
[2023-11-17] MEDS: CRESTOR 20 MG PO (22:42)
[2023-11-17 22:49] VITALS: BP 117/50
[2023-11-18 02:55] VITALS: BP 115/62
[2023-11-18 07:28] VITALS: BP 130/64
[2023-11-18] MEDS: SPIRIVA RESPIMAT 2.5 MCG 2 PUFF INH (07:31)
[2023-11-18] MEDS: SYMBICORT 80/4.5 MCG INHALER 2 PUFF INH (07:31)
[2023-11-18] MEDS: VENTOLIN NEBULES 2.5 MG INH ×2 (07:31→11:26)
[2023-11-18 08:09] LABS: % Basophils 0.6 % (0-2); % Eosinophils 1.6 % (0-6); % Immature Granulocytes 7.7 % (0-0.5); % Lymphocytes 23.4 % (20.5-51.1); % Monocytes 5.3 % (1.7-9.3); % Neutrophils 61.4 % (42.2-75.2); Absolute Basophils 0.1 10^3/uL (0-0.2); Absolute Eosinophils 0.2 10^3/uL (0-0.7); Absolute Immature Granulocytes 1.1 10^3/uL (0-0.05); Absolute Lymphocytes 3.5 10^3/uL (1.2-3.4); Absolute Monocytes 0.8 10^3/uL (0.1-0.6); Absolute Neutrophils 9.1 10^3/uL (1.4-6.5); Hematocrit 31.3 % (37.0-47.0); Hemoglobin 10.4 g/dL (12.0-16.0); Mean Corp Hgb Conc. 33.2 g/dL (33.0-37.0); Mean Corpuscular Hgb 30.1 pg (27.0-31.0); Mean Corpuscular Volume 90.7 fL (81.0-99.0); Mean Platelet Volume 8.7 fL (7.4-10.4); Nucleated Red Blood Cells % 0.1 %; Platelet Count 388 10^3/uL (130-400); Red Blood Cell Count 3.45 10^6/uL (4.20-5.40); Red Cell Dist. Width 16.7 % (11.5-14.5); White Blood Cell Count 14.8 10^3/uL (4.8-10.8)
[2023-11-18] MEDS: DELTASONE 20 MG PO ×2 (08:20→10:32)
[2023-11-18] MEDS: OSCAL 500 + D 500 MG PO (08:20)
[2023-11-18] MEDS: ROBITUSSIN 100 MG PO ×2 (08:21→13:44)
[2023-11-18 08:25] LABS: ALT (SGPT) 25 U/L (0-35); AST (SGOT) 17 U/L (14-36); Albumin 3.2 g/dl (3.5-5.0); Alkaline Phosphatase 49 U/L (38-126); Blood Urea Nitrogen 19 mg/dl (7-17); Calcium 9.1 mg/dl (8.4-10.2); Carbon Dioxide 27 mmol/L (22-30); Chloride 105 mmol/L (98-107); Estimated Creatinine Clearance 55 ml/min; Glucose 82 mg/dl (70-99); Potassium 4.2 mmol/L (3.5-5.1); Sodium 144 mmol/L (135-145); Total Bilirubin 0.4 mg/dl (0.2-1.3); Total Protein 5.6 g/dl (6.3-8.2); eGFR > 60.00
--- NOTE | 2023-11-18 09:35 | W.PN.HOSP.TC ---
Addendum entered and electronically signed by Mikey Fernandez DO 11/18/23 15:33:
Patient needs a nebulizer machine due to chronic lung disease.
Addendum entered and electronically signed by Mikey Fernandez DO 11/18/23 13:22:
Patient is in need of oxygen on exertion due to pulse oximetry of 91% on room air at rest; 85% on room air with exertion.
Patient was placed on 2L O2 via nasal cannula with saturation of 92%. Oxygen will help to improve hypoxemia.
Patient is mobile within the home. Albuterol therapy has been discussed and is ineffective in treating hypoxemia-related symptoms.
Oxygen will improve the patient's symptoms.
Original Note:
Today's Communication/Plan
-
Acapella
Incentive spirometry
Ambulatory pulse ox on room air
Increase dose of prednisone
Assessment / Plan
Assessment / Plan
Gen-AAOx3, NAD
HEENT-NC, AT, anicteric, clear oral mm
Neck-supple
CV-reg, no M, +S1/S2
Lungs-clear B/L
Abd-soft, NT, ND
Ext-no edema
Musculoskeletal-no cyanosis, clubbing
Skin-warm and dry
Neuro-grossly non-focal
Psych-calm, cooperative
Acute hypoxic respiratory insufficiency: Due to acute COPD exacerbation and community-acquired pneumonia. Currently on 2 L nasal cannula oxygen. Does not use oxygen at home.
Continue supplemental oxygen to keep pulse ox around 92% or above
CTA negative for PE
Monitor respiratory status closely
PT OT eval -no needs noted.
Home oxygen eval prior to discharge
Sepsis due to left lower lobe community-acquired pneumonia
Continue IV antibiotics, Rocephin and Zithromax, day 4 of antibiotics.
Did EKG and QTc acceptable
CT confirms left lower lobe pneumonia
WBC trending down despite being on steroids
Legionella negative, respiratory cultures negative, influenza negative.
Follow-up cultures
Recommend alcohol cessation. Discussed with patient that alcohol can cause pneumonia. She was drinking 2 beers daily prior to admission, but claims did not have a drink in the past 3 weeks.
COPD with acute exacerbation: Improving overall. Will increase prednisone dose to 40 mg daily. Was on albuterol rescue and Trelegy prior to admission. States she cannot afford Trelegy however. 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
pulmonary after discharge.
She quit smoking 4 years ago.
MARTIN -likely due to volume depletion. MARTIN resolved.
Acute anemia -normocytic. No evidence of bleeding. Suspect due to acute illness, hemodilution. Hemoglobin stable.
Hyperlipidemia:
Continue home statin
Former alcohol abuse
Reports drinks 3 beers daily until 3 weeks ago
CODE STATUS:
DNR
Anticipated Discharge: Within 24 hours
Subjective/Interval History
-
Date of Service: November 18, 2023
Patient seen and examined. Overall feeling better but not back to baseline yet.
Objective Data
-
Labs:
Laboratory Results
11/18/23
07:31
WBC 14.8 H
Hgb 10.4 L
Hct 31.3 L
Plt Count 388
Sodium 144
Potassium 4.2
Chloride 105
Carbon Dioxide 27
BUN 19 H
Creatinine 1.0
Glucose 82
Calcium 9.1
Total Bilirubin 0.4
AST 17
ALT 25
Alkaline Phosphatase 49
Vital Signs:
Vital Signs
Temp Pulse Resp BP Pulse Ox
98.2 F 80 16 130/64 95
11/18/23 07:28 11/18/23 07:34 11/18/23 07:34 11/18/23 07:28 11/18/23 07:34
I&O
11/17/23 11/18/23 11/19/23
06:59 06:59 06:59
Intake Total 1670 / 1670 360 / 360
Balance 1670 / 1670 360 / 360
Review of Systems
-
History Source: Patient
All other systems: Reviewed and negative
--- NOTE | 2023-11-18 10:50 | CM ---
Addendum entered by Reshma Connell 11/18/23 16:00:
Patient agreeable to home with [facility].
referral via [facility].
Plan: home with [facility], home oxygen and nebulizer from [facility].
[facility] V[facility]
fax#[phone]
Addendum entered by Reshma Connell 11/18/23 15:53:
nebulizer to be delivered with home oxygen.
Addendum entered by Reshma Connell 11/18/23 13:54:
Home oxygen assessment completed.
Options discussed.
referral to [facility].
[facility] to deliver home oxygen to the hospital.
Original Note:
Patient seen bedside.
Patient for possible d/c later today.
IMM reviewed with patient.
Home oxygen assessment pending.
Plan: home no VN needs, possible home oxygen.
[2023-11-18 11:06] VITALS: BP 128/75
[2023-11-18 12:35] VITALS: O2SAT 91
--- NOTE | 2023-11-18 13:04 | PTOTSP ---
The patient ambulated independently in the hallway for oxygen assessment with Respiratory and denied concerns regarding mobility upon return home. Anticipate discharge home without PT needs when medically stable. No PT needs at this time, will sign
off.
[2023-11-18 15:32] VITALS: BP 124/65
--- NOTE | 2023-11-18 15:33 | W.DS.TRANS ---
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
-
Discharge Instructions:
Discharge Diagnosis/Procedures Sepsis, pneumonia, COPD exacerbation
Diet Low Cholesterol,Low Fat
Activity As tolerated
Driving Restrictions As prior to admission
Bathing Restrictions None
Other Services VN
Instructions:
Stand-Alone Forms:
Changes to Home Medications: No
Discharge Medications:
DC Medications w/original date entered in [facility]
albuterol sulfate 90 mcg/actuation aerosol inhaler 1 puff inhalation R Q4HPRN PRN sob 04/07/23
calcium 600 mg (as carbonate)-vitamin D3 10 mcg (400 unit) tablet (Calcium 600 + D(3)) 1 tab PO BID Supplement ##0 04/07/23
omega-3 acid ethyl esters 1 gram capsule 2 cap PO BID Supplement 04/07/23
ascorbic acid (vitamin C) 500 mg tablet (Vitamin C) 500 mg PO DAILY Supplement 11/15/23
fluticasone fur. 100 mcg-umeclid 62.5 mcg-vilant 25 mcg inhalat.powder (Trelegy Ellipta) 1 inh inhalation R HS Lung/Breathing Issues 11/15/23
guaifenesin 1,200 mg tablet, extended release 12 hr (Mucinex) 1,200 mg PO BIDPRN PRN congestion 11/15/23
losartan 25 mg tablet 25 mg PO DAILY Blood Pressure 11/15/23
rosuvastatin 20 mg tablet 20 mg PO HS High Cholesterol 11/15/23
sodium chloride 0.65 % nasal spray aerosol (Saline Nasal Mist) 2 spray intranasal BIDPRN PRN congestion 11/15/23
zinc sulfate 50 mg zinc (220 mg) tablet 50 mg PO DAILY Supplement 11/15/23
albuterol sulfate 2.5 mg/3 mL (0.083 %) solution for nebulization 2.5 mg (3 mL) inhalation Q4H PRN shortness of breath or wheezing #75 mL 11/18/23
azithromycin 500 mg tablet 500 mg PO DAILY 2 days #2 tabs 11/18/23
cefpodoxime 200 mg tablet 200 mg PO BID #6 tabs 11/18/23
prednisone 10 mg tablet 10 mg PO DIRECTED #30 tabs 11/18/23
Home Medication Changes
Pending Results: No
[2023-11-18] MEDS: VENTOLIN NEBULES INH (16:00)
== END 2023-11-18 18:43 | disposition home health service (06) | DRG 871 ==
LOC: 4 WEST ACU 21:33
PROVIDERS: Clinical Nurse Specialist Family Health; ADMITTING PHYSICIAN Internal Medicine; ATTENDING PHYSICIAN Hospitalist; EMERGENCY PHYSICIAN Emergency Medicine; FAMILY PHYSICIAN Family Medicine
DX: A41.89 Other specified sepsis (principal); J18.9 Pneumonia, unspecified organism; J44.1 Chronic obstructive pulmonary disease with (acute) exacerbation; J44.0 Chronic obstructive pulmonary disease with (acute) lower respiratory infection; N17.9 Acute kidney failure, unspecified; R09.02 Hypoxemia; D64.9 Anemia, unspecified; E78.00 Pure hypercholesterolemia, unspecified; F10.10 Alcohol abuse, uncomplicated; Z66 Do not resuscitate; Z87.891 Personal history of nicotine dependence
CPT/HCPCS: 71046; 71275; 80053; 84484; 85025; 85379; 87070; 87205; 87449; 87502; 87811; 93005; 94640; 94760; 96374; 96375; 97162; 97166; 99285; Q9967

== ENCOUNTER → 2023-12-17 12:55 | Outpatient (REF) | payer MEDICARE, OTHER, SELFPAY | LOC: HWRAD 12:55 | PROVIDERS: ATTENDING PHYSICIAN Internal Medicine Critical Care Medicine | DX: J18.9 Pneumonia, unspecified organism (principal) | CPT/HCPCS: 71250 ==

== ENCOUNTER → 2023-12-30 09:49 | Outpatient (REF) | payer MEDICARE, OTHER, SELFPAY | LOC: DHSLP 09:49 | PROVIDERS: ATTENDING PHYSICIAN Internal Medicine Critical Care Medicine | DX: G47.19 Other hypersomnia (principal); R06.83 Snoring; R09.02 Hypoxemia | CPT/HCPCS: 95800 ==

== ENCOUNTER 2024-05-14 16:15 | Outpatient (RCR) | payer MEDICARE, OTHER, SELFPAY | END 2024-05-18 09:23 | disposition home or self-care (01) | LOC: PURB 16:15 | PROVIDERS: ATTENDING PHYSICIAN Internal Medicine Critical Care Medicine; FAMILY PHYSICIAN Family Medicine | DX: J44.9 Chronic obstructive pulmonary disease, unspecified (principal) | CPT/HCPCS: 94625; G0237 ==

== ENCOUNTER 2024-06-16 16:15 | Outpatient (RCR) | payer MEDICARE, OTHER, SELFPAY | END 2024-06-17 11:09 | disposition home or self-care (01) | LOC: PURB 16:15 | PROVIDERS: ATTENDING PHYSICIAN Internal Medicine Critical Care Medicine; FAMILY PHYSICIAN Family Medicine | DX: J44.9 Chronic obstructive pulmonary disease, unspecified (principal) | CPT/HCPCS: 94625 ==

== ENCOUNTER 2024-07-16 16:15 | Outpatient (RCR) | payer MEDICARE, OTHER, SELFPAY | END 2024-07-17 10:52 | disposition home or self-care (01) | LOC: PURB 16:15 | PROVIDERS: ATTENDING PHYSICIAN Internal Medicine Critical Care Medicine; FAMILY PHYSICIAN Family Medicine | DX: J44.9 Chronic obstructive pulmonary disease, unspecified (principal) | CPT/HCPCS: 94625 ==

== ENCOUNTER 2024-08-04 16:15 | Outpatient (RCR) | payer MEDICARE, OTHER, SELFPAY | END 2024-08-05 11:34 | disposition home or self-care (01) | LOC: PURB 16:15 | PROVIDERS: ATTENDING PHYSICIAN Internal Medicine Critical Care Medicine; FAMILY PHYSICIAN Family Medicine | DX: J44.9 Chronic obstructive pulmonary disease, unspecified (principal) | CPT/HCPCS: 94625 ==